=== PATIENT | female | born 1940 | race Caucasian/White ===

== ENCOUNTER 2016-03-26 09:50 | Emergency (ER) | payer OTHER, MEDICARE ==
[~2016-03-26] VITALS: Ht 160 cm; Wt 63.3 kg
[2016-03-26] MEDS ORDERED: LO-DOSE ASPIRIN81 M2 PO (10:20)
[2016-03-26] MEDS ORDERED: CHROMIUM PICO200 MCG PO (10:21)
[2016-03-26] MEDS ORDERED: CRANBERRY TABL1 EACH PO (10:30)
[2016-03-26] MEDS ORDERED: MAGNESIUM250 MG PO (10:31)
[2016-03-26] MEDS ORDERED: CONSTULOSE10 GM/15 M PO (10:31)
[2016-03-26] MEDS ORDERED: VITAMIN D400 UNI1 PO (10:32)
[2016-03-26] MEDS ORDERED: ASCORBIC ACID100 MG PO (10:32)
[2016-03-26] MEDS ORDERED: XANAX0.25 MG PO (10:32)
[2016-03-26] MEDS ORDERED: FISH OIL300 MG PO (10:33)
[2016-03-26] MEDS ORDERED: B COMPLETE1 EACH PO (10:34)
[2016-03-26 11:15] LABS: EOSINOPHIL (%) 0.4 % (0-5); HEMATOCRIT 38.5 % (36.0-46.0); LYMPHOCYTE COUNT 0.9 K/uL (1.0-2.8); MCH 31.4 PG (29.0-34.0); MCHC 36.1 G/DL (30.0-36.0); MCV 87.1 FL (83-99); MEAN PLAT.VOLUME 9.6 uM^3 (9.5-12.4); MONOCYTE (%) 6.6 % (3-12); MONOCYTE COUNT 0.4 K/uL (0-0.8); NEUTROPHIL (%) 75.4 % (45-76); NEUTROPHIL COUNT 4.1 K/uL (1.8-6.4); PLATELET COUNT 244 K/uL (156-360); RBC DIS.WIDTH-CV 12.9 % (11.8-14.6); RBC DIS.WIDTH-SD 40.6 % (39-53); RED BLOOD COUNT 4.42 M/uL (3.80-5.20); WHITE BLOOD COUNT 5.5 K/uL (4.1-10.2)
[2016-03-26 11:27] LABS: CHLORIDE 97 mEq/L (99-109); POTASSIUM 4.2 mEq/L (3.7-5.4); SODIUM 128 mEq/L (136-147)
[2016-03-26 11:29] LABS: GLUCOSE 95 mg/dL (70-99)
[2016-03-26 11:30] LABS: ANION GAP 10 MEQ/L (2-14)
[2016-03-26 11:31] LABS: TOTAL BILIRUBIN 1.3 mg/dL (0.0-1.0)
[2016-03-26 11:33] LABS: ALKALINE PHOSPHATASE 78 IU/L (3-129); GFR ESTIMATE (CALCULATED) > 59 mL/min/
[2016-03-26 11:34] LABS: UREA NITROGEN (BUN) 13 mg/dL (9-23)
[2016-03-26 11:35] LABS: TROP-I INTERPRETATION NEGATIVE; TROPONIN-I < 0.01 ng/mL (0.0-0.30)
[2016-03-26 15:12] VITALS: BP 105/73
== END 2016-03-26 15:13 | disposition home or self-care (01) ==
LOC: EME 09:50
PROVIDERS: Emergency Medicine
DX: E87.1 Hypo-osmolality and hyponatremia (principal); I10 Essential (primary) hypertension; R20.2 Paresthesia of skin
CPT/HCPCS: 80053; 84484; 85025; 93005; 99281; 99285; J7030

== ENCOUNTER 2016-04-01 07:50 | Emergency (ER) | payer OTHER, MEDICARE ==
[~2016-04-01] VITALS: Ht 160 cm; Wt 62.3 kg
[~2016-04-01 07:50] MED LIST: ASCORBIC ACID100 MG PO; B COMPLETE1 EACH PO; CHROMIUM PICO200 MCG PO; CONSTULOSE10 GM/15 M PO; CRANBERRY TABL1 EACH PO; FISH OIL300 MG PO; LO-DOSE ASPIRIN81 M2 PO; MAGNESIUM250 MG PO; VITAMIN D400 UNI1 PO; XANAX0.25 MG PO
[2016-04-01 08:27] LABS: EOSINOPHIL COUNT 0.1 K/uL (0-0.3); HEMATOCRIT 40.6 % (36.0-46.0); IMMATURE GRANULOCYTE (%) 0.1 % (0.0-0.7); IMMATURE GRANULOCYTE COUNT 0.1 K/uL; LYMPHOCYTE COUNT 1.5 K/uL (1.0-2.8); MCH 31.4 PG (29.0-34.0); MCHC 35.5 G/DL (30.0-36.0); MCV 88.5 FL (83-99); MEAN PLAT.VOLUME 9.3 uM^3 (9.5-12.4); MONOCYTE (%) 10.9 % (3-12); MONOCYTE COUNT 0.7 K/uL (0-0.8); NEUTROPHIL (%) 64.3 % (45-76); NEUTROPHIL COUNT 4.3 K/uL (1.8-6.4); PLATELET COUNT 263 K/uL (156-360); RBC DIS.WIDTH-CV 13.1 % (11.8-14.6); RBC DIS.WIDTH-SD 41.5 % (39-53); RED BLOOD COUNT 4.59 M/uL (3.80-5.20); WHITE BLOOD COUNT 6.7 K/uL (4.1-10.2)
[2016-04-01] MEDS ORDERED: LEXAPRO10 MG PO (08:34)
[2016-04-01 08:35] LABS: CHLORIDE 95 mEq/L (99-109); POTASSIUM 3.7 mEq/L (3.7-5.4); SODIUM 128 mEq/L (136-147)
[2016-04-01] MEDS ORDERED: CLONIDINE HCL0.1 MG PO (08:35)
[2016-04-01 08:36] LABS: GLUCOSE 98 mg/dL (70-99)
[2016-04-01] MEDS ORDERED: AMLODIPINE BESY10 MG PO (08:36)
[2016-04-01 08:37] LABS: PROTHROMBIN TIME 10.3 (9.2-11.2); PTT 25.1 (25-32)
[2016-04-01 08:38] LABS: ANION GAP 12 MEQ/L (2-14)
[2016-04-01 08:40] LABS: GFR ESTIMATE (CALCULATED) > 59 mL/min/
[2016-04-01 08:41] LABS: UREA NITROGEN (BUN) 16 mg/dL (9-23)
[2016-04-01 08:48] LABS: TROP-I INTERPRETATION NEGATIVE; TROPONIN-I < 0.01 ng/mL (0.0-0.30)
[2016-04-01 09:45] VITALS: BP 121/82
== END 2016-04-01 10:07 | disposition home or self-care (01) ==
LOC: EME 07:50
PROVIDERS: Emergency Medicine
DX: R07.89 Other chest pain (principal); E87.1 Hypo-osmolality and hyponatremia; F41.9 Anxiety disorder, unspecified; J43.9 Emphysema, unspecified; I10 Essential (primary) hypertension; Z79.82 Long term (current) use of aspirin
CPT/HCPCS: 71010; 80048; 84484; 85025; 85610; 85730; 93005; 99281; 99285

== ENCOUNTER 2017-08-13 22:28 | Emergency (ER) | payer OTHER, MEDICARE ==
[~2017-08-13] VITALS: Ht 157.5 cm; Wt 59.0 kg
[~2017-08-13 22:28] MED LIST changes: +AMLODIPINE BESY10 MG PO; +CLONIDINE HCL0.1 MG PO; +LEXAPRO10 MG PO
[2017-08-13 23:27] LABS: HEMATOCRIT 39.6 % (36.0-46.0); HEMOGLOBIN 14.6 G/DL (11.9-15.5); MCH 31.5 PG (29.0-34.0); MCHC 36.9 G/DL (30.0-36.0); MCV 85.5 FL (83-99); PLATELET COUNT 299 K/uL (156-360); RBC DIS.WIDTH-SD 40.6 % (39-53); RED BLOOD COUNT 4.63 M/uL (3.80-5.20); WHITE BLOOD COUNT 6.6 K/uL (4.1-10.2)
[2017-08-13 23:35] LABS: CHLORIDE 94 mEq/L (99-109); POTASSIUM 4.1 mEq/L (3.7-5.4); SODIUM 128 mEq/L (136-147)
[2017-08-13 23:37] LABS: GLUCOSE 110 mg/dL (70-99)
[2017-08-13 23:41] LABS: CREATININE 0.7 mg/dL (0.6-1.3); GFR ESTIMATE (CALCULATED) > 59 mL/min/
[2017-08-13 23:42] LABS: UREA NITROGEN (BUN) 13 mg/dL (9-23)
[2017-08-13 23:53] LABS: TROP-I INTERPRETATION NEGATIVE; TROPONIN-I < 0.01 ng/mL (0.0-0.30)
[2017-08-14 02:04] LABS: TROP-I INTERPRETATION NEGATIVE; TROPONIN-I < 0.01 ng/mL (0.0-0.30)
[2017-08-14 03:32] VITALS: BP 124/69
== END 2017-08-14 03:32 | disposition home or self-care (01) ==
LOC: EME 22:28
PROVIDERS: Emergency Medicine
DX: I10 Essential (primary) hypertension (principal); A69.20 Lyme disease, unspecified; K90.0 Celiac disease; Z79.82 Long term (current) use of aspirin; Z91.040 Latex allergy status
CPT/HCPCS: 71046; 80048; 84484; 85027; 93005; 99281; 99284